=== PATIENT | female | born 1970 | race African-American/Black ===

== ENCOUNTER 2018-04-24 09:37 | Emergency (ER) | payer OTHER ==
[~2018-04-24] VITALS: Ht 165.1 cm; Wt 83.0 kg
--- NOTE | ~2018-04-24 | EKG ---
[facility] [employer] [place] [address] ELECTROCARDIOGRAM REPORT Name: LEVI THORNE Room #: DEP [facility] PARKTanvir#: [id number] Admission: 04/24/18 Attend Phys: Discharge: 04/24/18 Date of : 72 Report #: [id number] THIS REPORT FOR: //name// [facility] ED Test Date: 2018-04-24 Test Time: 10:08:23 Pat Name: LEVI THORNE Department: Room: Gender: F Regulator Operator: ROSIO : 1970 Requested By: Janny Blake Order Number: [id number] MD: Iraj Jain Measurements Intervals [place] Rate: 94 P: 15 OK: 126 QRS: 3 QRSD: 82 T: 3 QT: 339 QTc: 424 Interpretive Statements Sinus rhythm Voltage criteria for left ventricular hypertrophy No previous ECG available for comparison Electronically Signed On 04-24-2018 16:26:09 CDT by Iraj Jain [email or web address] <ELECTRONICALLY SIGNED> By: Iraj Jain MD, [facility] 04/24/18 1626 1008 [id number] Iraj Jain MD, FACC /EPI
[~2018-04-24 09:37] MED LIST: FIBER 61 EACH PO; FISH OIL 1,0001 EAC5 PO; FOLIC ACID1 MG PO; LEVOTHYROXIN0.125 M1 PO; LEVOTHYROXINE 0.15MG PO; METHOTREXATE 22.5 MG PO; MULTI VITAMIN1 EACH PO; REPLACE1 EACH PO; SYNTHROID25 MCG PO; VICODIN 5-5001 EACH PO; VITAMIN D PO; VITAMIN D1000 UNI1 PO
[2018-04-24 10:11] LABS: ABSOLUTE NEUTROPHILS 7.8 thou/uL (1.4-8.2); BASOPHILS 0.3 % (0.0-2.0); HEMATOCRIT 34.5 % (37.0-47.0); HEMOGLOBIN 11.3 gm/dL (12.0-15.0); LYMPHOCYTES 4.4 % (24.0-44.0); MCH 26.4 pg (26.0-34.0); MCHC 32.7 g/dL (28.0-37.0); MCV 80.8 fL (80.0-100.0); MONOCYTES 8.2 % (1.0-8.0); PLATELET COUNT 214 thou/uL (150-400); POLYS 87.1 % (36.0-66.0); RBC 4.27 mil/uL (4.20-5.00)
[2018-04-24 10:24] LABS: ANION GAP 6 mmol/L (7-16); BUN 14 mg/dL (7-18); CALCIUM 9.1 mg/dL (8.5-10.1); CHLORIDE 107 mmol/L (98-107); CO2 26 mmol/L (21-32); CREATININE 1.1 mg/dL (0.6-1.0); GLUCOSE 111 mg/dL (74-106); POTASSIUM 4.3 mmol/L (3.5-5.1); SODIUM 139 mmol/L (136-145)
[2018-04-24 10:33] LABS: TROPONIN-I <0.06 ng/mL (<0.06)
[2018-04-24 11:25] VITALS: BP 118/74
[2018-04-24] MEDS ORDERED: PREDNISONE 20 M20 MG PO (11:25)
== END 2018-04-24 11:37 | disposition home or self-care (01) ==
LOC: ER 09:37
PROVIDERS: Emergency Medicine
DX: T78.40XA Allergy, unspecified, initial encounter (principal); R55 Syncope and collapse; R51 Headache; Z88.1 Allergy status to other antibiotic agents

== ENCOUNTER 2018-07-05 05:21 | Emergency (ER) | payer OTHER ==
[~2018-07-05] VITALS: Ht 165.1 cm; Wt 83.9 kg
[~2018-07-05 05:21] MED LIST changes: -LEVOTHYROXINE 0.15MG PO; +PREDNISONE 20 M20 MG PO; +SYNTHROID200 MCG PO
[2018-07-05 06:23] LABS: CALCIUM 9.1 mg/dL (8.5-10.1); CREATININE 1.2 mg/dL (0.6-1.0); HEMATOCRIT 36.4 % (37.0-47.0); HEMOGLOBIN 11.8 gm/dL (12.0-15.0); MCH 25.9 pg (26.0-34.0); MCHC 32.4 g/dL (28.0-37.0); MCV 79.8 fL (80.0-100.0); POTASSIUM 3.7 mmol/L (3.5-5.1); RBC 4.57 mil/uL (4.20-5.00); RDW 14.4 % (10.5-14.5); WBC 7.7 thou/uL (4.0-11.0)
[2018-07-05 06:29] LABS: ALBUMIN 3.4 g/dL (3.4-5.0); MAGNESIUM 1.8 mg/dL (1.8-2.4); TOTAL BILIRUBIN 0.2 mg/dL (<0.1-1.0); TOTAL PROTEIN 8.2 g/dL (6.4-8.2)
[2018-07-05] MEDS ORDERED: NEURONTIN 300300 M1 PO (08:50)
[2018-07-05] MEDS ORDERED: FLONASE 0.05%50 MCG NASAL (08:54)
[2018-07-05 08:55] VITALS: BP 109/57
== END 2018-07-05 08:55 | disposition home or self-care (01) ==
LOC: ER 05:21
PROVIDERS: Emergency Medicine
DX: R51 Headache (principal); E07.9 Disorder of thyroid, unspecified; Z88.1 Allergy status to other antibiotic agents

== ENCOUNTER 2021-08-15 15:25 | Emergency (ER) | payer OTHER ==
[~2021-08-15] VITALS: Ht 165.1 cm; Wt 90.7 kg
[~2021-08-15 15:25] MED LIST changes: +FLONASE 0.05%50 MCG NASAL; +NEURONTIN 300300 M1 PO
[2021-08-15 15:30] VITALS: BP 134/71
[2021-08-15] MEDS ORDERED: ZANAFLEX4 MG PO (15:55)
[2021-08-15] MEDS ORDERED: MOBIC7.5 MG PO (15:55)
== END 2021-08-15 19:26 | disposition home or self-care (01) ==
LOC: ER 15:25
DX: M54.42 Lumbago with sciatica, left side (principal); E03.9 Hypothyroidism, unspecified; Z98.890 Other specified postprocedural states; Z90.89 Acquired absence of other organs; Z79.891 Long term (current) use of opiate analgesic; Z79.899 Other long term (current) drug therapy; Z79.1 Long term (current) use of non-steroidal anti-inflammatories (NSAID); Z88.1 Allergy status to other antibiotic agents